=== PATIENT | male | born 1960 | race Caucasian/White ===

== ENCOUNTER → 2017-07-14 | Outpatient (CLI) | payer OTHER ==
[~2017-07-14] MED LIST: ACIPHX20PT PO; ASCO-191 PO; ASP325 PO; ASPI-1471 PO; ASPI81TA94 PO; ATOR40TA24 PO; ATR80PT PO; CHOL200038 PO; CHOL200074 PO; DIPH0.5D12 IM; EZET10TA41 PO; FISH OIL1 CAP PO; FLU45SYR17 IM; FLU60SYR30 IM ONLY; GLUC-255 PO; GLUC750T10 PO; LATA2.5D7 OP; MELO-207 PO; MOMR; MOMR NS; MONT10TA22 PO; MULT-1335 PO; MULT-865 PO; NIA500 PO; RABE20TA33 PO; RAN150 PO; ROSU10TA13 PO; ROSU5TAB18 PO; TERB250T74 PO; TIMO1DRO8 OP; [UNRECOGNIZED DRUG - CODE] PO
== END ==
LOC: LAB 15:49
PROVIDERS: ATTEND Surgery
DX: L82.1 Other seborrheic keratosis (principal)
CPT/HCPCS: 88305